=== PATIENT | female | born 1970 | race Caucasian/White ===

== ENCOUNTER 2016-11-17 11:21 | Emergency (ER) | payer OTHER ==
[~2016-11-17] VITALS: Wt 63.6 kg
--- NOTE | 2016-11-17 12:41 | ERD ---
ER Documentation Chief Complaint Date/Time DATE: 11/17/16 TIME: 12:37 Chief Complaint L. ANKLE PAIN HPI This patient is a 46-year-old female with no significant medical history presenting to the emergency department for left ankle pain after rolling it while walking down her stairs approximately 4 days ago. She rates her pain currently a 6 out of 10 on the pain scale and she has taken ibuprofen at home with mild relief. She has had some mild difficulty ambulating secondary to the pain. Additionally she reports hitting her left femur on the wall when she fell and now she has a bruise here. She denies any head injury or loss of consciousness. She denies all other symptoms at this time. ROS All systems reviewed and are negative except as per history of present illness. Medications Home Meds Active Scripts Naproxen* (Naprosyn*) 500 Mg Tablet, 500 MG PO BID Y for PAIN AND/OR INFLAMMATION, #15 TAB Prov:STEPHANIE CORTES PA-C 11/17/16 PMhx/Soc Medical and Surgical Hx: pt denies Medical Hx, pt denies Surgical Hx Hx Alcohol Use: No Hx Substance Use: No Hx Tobacco Use: No FmHx Noncontributory for chief complaint Physical Exam Vitals Vital Signs Date Time Temp Pulse Resp B/P Pulse Ox O2 Delivery O2 Flow Rate FiO2 11/17/16 14:15 98.6 81 20 128/74 98 11/17/16 11:36 98.6 83 20 134/62 98 Physical Exam INITIAL VITAL SIGNS: Reviewed by me. GENERAL: Alert and interactive. No acute distress. HEAD: Head is normocephalic and atraumatic. EYES: EOMI. No scleral icterus. No conjunctival injection. ENT: Moist mucosa. NECK: Supple. Full range of motion. RESPIRATORY: Normal respiratory effort. Clear breath sounds bilaterally. No wheezing, rales, or rhonchi. CV: Regular rate and rhythm. Normal S1 S2. No S3 or S4. No murmurs. ABDOMEN: Soft, non-distended, non-tender. No guarding. No rebound. No masses. EXTREMITIES: There is mild edema and ecchymosis to the lateral malleolus of the left lower extremity with limited range of motion secondary to pain. There is ecchymosis on the left mid femur. SKIN: Warm and dry. NEUROLOGIC: Alert and oriented x 4. Speech is normal. Moves all extremities equally. No motor or sensory deficits noted. Results 24 hrs Current Medications Medications (Trade) Dose Ordered Sig/Mckenna Route PRN Reason Start Time Stop Time Status Last Admin Dose Admin Acetaminophen/ Hydrocodone Bitart ([place] (5/325)) 1 tab ONCE ONCE PO 11/17/16 13:00 11/17/16 13:01 DC 11/17/16 12:57 Procedures/MDM EMERGENCY DEPARTMENT COURSE / MEDICAL DECISION MAKING: This is a 46-year-old female who comes to the emergency room secondary to complaints of left ankle pain after injury. The patient also complains of a bruise to the left femur after hitting a wall. The patient was given [place] in the department for acute pain relief. PROCEDURE: XR left Ankle. CLINICAL INDICATION: Pain status post twisting of ankle and trauma TECHNIQUE: AP, oblique, and lateral views of the left ankle were performed. COMPARISON: None available FINDINGS: The osseous structures are intact with no evidence of fracture or subluxation. The ankle mortise is well maintained. The soft tissues are remarkable for soft- tissue swelling at the ankle. Calcaneal spurs are noted at the Achilles tendon and plantar tarsi insertions. IMPRESSION: 1. No acute fractures or dislocations. 2. Soft tissue swelling at the ankle. 3. Calcaneal spurs as indicated above. PROCEDURE: Left femur series CLINICAL INDICATION: Pain status post trauma and bruising TECHNIQUE: AP and lateral views COMPARISON: None available FINDINGS: No acute fractures or dislocations are present. No evidence for bony lesions are noted. The soft tissues are normal. No radiodense foreign bodies are present. IMPRESSION: 1. No acute fractures or dislocations or evidence for osseous involvement. The primary diagnosis is left ankle sprain. Discharge: I have discussed the lab results and diagnostic findings with the patient and answered any questions or concerns. The patient was discharged with a prescription for naproxen. Patient is to use rice therapy as needed at home. The patient was advised to followup with their PMD in 1-2 days and to return to the ED if there are any new or worsening symptoms. The patient understood and agreed with treatment and plan. Departure Diagnosis: Primary Impression: Ankle injury Additional Impression: Ankle sprain Condition: Stable Patient Instructions: Treating Ankle Sprains Additional Instructions: Follow-up with your primary care physician within 1 week. Return to the emergency department immediately should you have any new or worsening symptoms, uncontrolled fevers, or other unexplained symptoms. Take all medications as directed. STEPHANIE CORTES PA-C Nov 17, 2016 12:41
[2016-11-17] MEDS ORDERED: HYDROCODONE/APAP (5/325) TAB PO ONE (13:00)
--- NOTE | 2016-11-17 13:44 | RADRPT ---
PROCEDURE: Left femur series CLINICAL INDICATION: Pain status post trauma and bruising TECHNIQUE: AP and lateral views COMPARISON: None available FINDINGS: No acute fractures or dislocations are present. No evidence for bony lesions are noted. The soft t issues are normal. No radiodense foreign bodies are present. IMPRESSION: 1. No acute fractures or dislocations or evidence for osseous involvement. RPTAT: HDC .Anna Chicas MD, MD Date Time Electronically viewed and signed by .Anna Chicas MD, on 11/17/2016 13:44 .C/
--- NOTE | 2016-11-17 13:49 | RADRPT ---
PROCEDURE: XR left Ankle. CLINICAL INDICATION: Pain status post twisting of ankle and trauma TECHNIQUE: AP, oblique, and lateral views of the left ankle were performed. COMPARISON: None available FINDINGS: The osseous structures are intact with no evidence of fracture or subluxation. The ankle mortise is well maintained. The soft tissues are remarkable for soft-tissue swelling at the ankle. Calcaneal spurs are noted at the Achilles tendon and plantar tarsi insertions. IMPRESSION: 1. No acute fractures or dislocations. 2. Soft tissue swelling at the ankle. 3. Calcaneal spurs as indicated above. RPTAT: HDC .Anna Chicas MD, MD Date Time Electronically viewed and signed by .Anna Chicas MD, on 11/17/2016 13:49 .C/
[2016-11-17] MEDS ORDERED: NAPR-260 PO (14:06)
[2016-11-17 14:15] VITALS: BP 128/74; PULSE 81; RESP 20; TEMP 98.6
== END 2016-11-17 14:15 | disposition home or self-care (01) ==
LOC: FTE 11:21
DX: S93.402A Sprain of unspecified ligament of left ankle, initial encounter (principal); X50.1XXA Overexertion from prolonged static or awkward postures, initial encounter; Y92.9 Unspecified place or not applicable
CPT/HCPCS: 73550; 73610; Z7610